=== PATIENT | female | born 1990 | race Caucasian/White ===

== ENCOUNTER 2021-05-21 07:20 | Inpatient (IN) | payer BC, SELFPAY ==
[~2021-05-21] VITALS: Ht 162.6 cm; Wt 86.6 kg
[2021-05-21] MEDS ORDERED: LR 1,000 ML IV ONE (08:30)
[2021-05-21] MEDS ORDERED: CEFAZOLIN 2 GM IVPB PREMIX 50 ML IV ONE ×2 (08:30→09:14)
[2021-05-21 08:58] LABS: BASOPHILS % (AUTO) 0.3 % (0.0-2.0); EOSINOPHILS # (AUTO) 0.1 K/uL (0.0-0.4); EOSINOPHILS % (AUTO) 0.9 % (0.0-4.0); HEMATOCRIT 35.4 % (36-48); HEMOGLOBIN 11.6 g/dL (12.0-16.0); LYMPHOCYTES # (AUTO) 1.3 K/uL (1.0-5.5); LYMPHOCYTES % (AUTO) 17.9 % (20.5-51.5); MEAN CORPUSCULAR HEMOGLOBIN 29 pg (27-31); MEAN CORPUSCULAR HGB CONC 33 % (32-36); MEAN CORPUSCULAR VOLUME 87 fL (79.0-98.0); MONOCYTES # (AUTO) 0.7 K/uL (0.0-1.0); MONOCYTES % (AUTO) 9.3 % (1.7-9.3); NEUTROPHILS # (AUTO) 5.2 K/uL (1.8-7.7); NEUTROPHILS % (AUTO) 71.6 % (40.0-70.0); PLATELET COUNT (AUTO) 150 K/uL (130-430); RED BLOOD CELL COUNT(AUTO) 4.06 MIL/uL (4.2-6.2); RED CELL DISTRIBUTION WIDTH 15.4 % (9.0-15.0); WHITE BLOOD COUNT (AUTO) 7.3 K/uL (4.8-10.8)
[2021-05-21 09:16] LABS: BILIRUBIN,URINE NEGATIVE (NEGATIVE); BLOOD, URINE 2+ (NEGATIVE); CLARITY/URINE SL CLOUDY (CLEAR); COLOR,URINE YELLOW (YELLOW); GLUCOSE,URINE NEGATIVE (NEGATIVE); KETONES,URINE 3+ (NEGATIVE); LEUKOCYTE ESTERASE ,URINE 3+ (NEGATIVE); NITRITE, URINE NEGATIVE (NEGATIVE); PROTEIN URINE NEGATIVE (NEGATIVE); UROBILINOGEN,URINE 0.2 (0.2-1.0)
[2021-05-21 10:06] LABS: BACTERIA,URINE MODERATE /HPF (None Seen); WBC,URINE 20-50 /HPF (0-3)
[2021-05-21] MEDS ORDERED: KETOROLAC TROMETHAMINE 60 MG/2 ML VIAL IM PRN (10:30)
[2021-05-21] MEDS ORDERED: NALOXONE HCL 0.4 MG/ML AMP (NARCAN) IVP PRN ×2 (10:30→11:15)
[2021-05-21] MEDS ORDERED: MORPHINE SULFATE 10MG/10ML PF AMP SP SCH (10:30)
[2021-05-21] MEDS ORDERED: ONDANSETRON HCL 4 MG/2 ML VIAL IVP PRN (10:30)
[2021-05-21] MEDS ORDERED: DIPHENHYDRAMINE INJ 50 MG/ML VIAL IM PRN (10:30)
[2021-05-21] MEDS ORDERED: MORPHINE SULFATE 10MG/10ML PF AMP ONE (11:05)
[2021-05-21] MEDS ORDERED: NS IRRIG SOLN 1000 ML IR ONE (11:05)
[2021-05-21] MEDS ORDERED: ONDANSETRON HCL 4 MG/2 ML VIAL ONE (11:05)
[2021-05-21] MEDS ORDERED: BUPIVACAINE /PF 0.75% 10 ML VIAL INJ ONE (11:05)
[2021-05-21] MEDS ORDERED: METOCLOPRAMIDE HCL 10 MG/2 ML VIAL ONE (11:05)
[2021-05-21] MEDS ORDERED: OXYTOCIN 10 UNIT/ML VIAL ONE (11:05)
[2021-05-21] MEDS ORDERED: LR 1,000 ML IV.SOLN IV ONE (11:05)
[2021-05-21] MEDS ORDERED: TEMAZEPAM 15 MG CAPSULE PO PRN (11:15)
[2021-05-21] MEDS ORDERED: BISACODYL 10 MG/SUPPOSITORY RC PRN (11:15)
[2021-05-21] MEDS ORDERED: OXYCODONE/ACETAMINOPHEN *10*mg/325 mg TABLET PO PRN (11:15)
[2021-05-21] MEDS ORDERED: RHO(D) IMMUNE GLOBULIN/MALTOSE 1500 UNITS/1.3 ML (WINHRO) IM PRN (11:15)
[2021-05-21] MEDS ORDERED: OXYTOCIN/0.9 % SODIUM CHLORIDE 1,000 ML IV SCH (11:15)
[2021-05-21] MEDS ORDERED: MEASLES,MUMPS&RUBELLA VACC/PF 12500 UNIT/0.5 ML VIAL SUBQ PRN (11:15)
[2021-05-21] MEDS ORDERED: LANOLIN 7 GM OINT. TP PRN (11:15)
[2021-05-21] MEDS ORDERED: HYDROcodone/ACETAMIN 5-325 MG TAB (NORCO/ VICODIN) PO PRN (11:15)
[2021-05-21] MEDS ORDERED: LR 1,000 ML IV SCH (11:15)
[2021-05-21] MEDS ORDERED: ANUSOL 1 EA SUPP.RECT (PREPARATION H) RC PRN (11:15)
[2021-05-21] MEDS ORDERED: DIPH-TET-PERTUS Vaccine 0.5 ML VIAL (ADACEL) I.M. PRN (11:15)
[2021-05-21] MEDS: CEFAZOLIN 1 GM IVPB PREMIX 50 ML IV SCH ×2 (16:50→23:53)
[2021-05-21 18:15] VITALS: BP_SYST 118
[2021-05-21] MEDS ORDERED: SENNOSIDES/DOCUSATE SODIUM 1 TAB TABLET(SENOKOT-S) PO SCH (21:00)
[2021-05-21] MEDS: KETOROLAC TROMETHAMINE 30 MG VIAL IVP SCH (23:50)
[2021-05-22] MEDS: KETOROLAC TROMETHAMINE 30 MG VIAL IVP SCH ×2 (05:40→12:31)
[2021-05-22 07:12] LABS: BASOPHILS % (AUTO) 0.4 % (0.0-2.0); EOSINOPHILS # (AUTO) 0.1 K/uL (0.0-0.4); EOSINOPHILS % (AUTO) 0.8 % (0.0-4.0); HEMATOCRIT 35.3 % (36-48); HEMOGLOBIN 11.6 g/dL (12.0-16.0); LYMPHOCYTES # (AUTO) 1.2 K/uL (1.0-5.5); MEAN CORPUSCULAR HEMOGLOBIN 29 pg (27-31); MEAN CORPUSCULAR HGB CONC 33 % (32-36); MEAN CORPUSCULAR VOLUME 89 fL (79.0-98.0); MONOCYTES # (AUTO) 0.7 K/uL (0.0-1.0); NEUTROPHILS # (AUTO) 6.9 K/uL (1.8-7.7); NEUTROPHILS % (AUTO) 77.8 % (40.0-70.0); PLATELET COUNT (AUTO) 133 K/uL (130-430); RED BLOOD CELL COUNT(AUTO) 3.96 MIL/uL (4.2-6.2); RED CELL DISTRIBUTION WIDTH 15.1 % (9.0-15.0); WHITE BLOOD COUNT (AUTO) 8.9 K/uL (4.8-10.8)
[2021-05-22] MEDS: DOCUSATE SODIUM 100 MG CAPSULE PO SCH ×2 (12:27→21:30)
[2021-05-22] MEDS: SIMETHICONE 80 MG TAB.CHEW PO PRN (12:27)
[2021-05-22] MEDS: OXYCODONE/ACETAMINOPHEN 5-325 TABLET PO PRN (12:49)
[2021-05-22] MEDS: IBUPROFEN 600 MG TABLET PO SCH ×3 (12:49→23:48)
[2021-05-23] MEDS: IBUPROFEN 600 MG TABLET PO SCH (05:39)
--- NOTE | 2021-05-23 10:42 | NUR ---
Nutrition Note Pt was due for high risk Nutrition Assessment today. However, per RN, pt is pending D/C home and confirmed that pt has been BF. RD and sport internship visited pt at bedside and provided nutrition education on BF MNT. RD contact info provided.
[2021-05-23] MEDS: OXYCODONE/ACETAMINOPHEN 5-325 TABLET PO PRN (10:43)
[2021-05-23] MEDS: SIMETHICONE 80 MG TAB.CHEW PO PRN (10:44)
[2021-05-23] MEDS: DOCUSATE SODIUM 100 MG CAPSULE PO SCH (10:44)
== END 2021-05-23 11:05 | disposition home or self-care (01) | DRG 788 ==
LOC: OBSVTOIN 07:20 → SPU 07:20
PROVIDERS: ADMIT Specialist; ATTEND Specialist
PROC: 10D00Z1 Extraction of Products of Conception, Low, Open Approach (ICD-10-PCS; principal; 2021-05-21 09:30)
DX: O34.211 Maternal care for low transverse scar from previous cesarean delivery (principal); O24.429 Gestational diabetes mellitus in childbirth, unspecified control; Z20.822 Contact with and (suspected) exposure to COVID-19; Z37.0 Single live birth; Z3A.38 38 weeks gestation of pregnancy
CPT/HCPCS: 36415; 81000; 82962; 85025; 86592; 86886; 86900; 86901; 94760; J0690; J1885; J2274; J2405; J2590; J2765; J3490; J7120